=== PATIENT | female | born 1955 | race Caucasian/White ===

== ENCOUNTER 2021-12-21 21:41 | Inpatient (IN) | payer MEDICARE, OTHER ==
[~2021-12-21] VITALS: Ht 162.6 cm; Wt 44.3 kg
[2021-12-21] MEDS ORDERED: Aspir 8181 MG PO (21:58)
[2021-12-21 22:18] LABS: BASOPHILS ABSOLUTE AUTO 0.03 K/mm3 (0.00-0.23); BASOPHILS PERCENT AUTO 0 % (0-2); EOSINOPHILS ABSOLUTE AUTO 0.01 K/mm3 (0.00-0.68); EOSINOPHILS PERCENT AUTO 0 % (0-6); Hematocrit 41.9 % (33.0-51.0); Hemoglobin 12.1 g/dL (11.5-16.0); IMMATURE GRAN ABSOLUTE AUTO 0.24 K/mm3 (0.00-0.10); IMMATURE GRAN PERCENT AUTO 2 % (0-1); LYMPHOCYTES ABSOLUTE AUTO 0.83 K/mm3 (0.84-5.20); LYMPHOCYTES PERCENT AUTO 6 % (21-46); MONOCYTES ABSOLUTE AUTO 0.71 K/mm3 (0.16-1.47); MONOCYTES PERCENT AUTO 5 % (4-13); Mean Corpuscular HGB 27.1 pg (26.0-34.0); Mean Corpuscular HGB Conc 28.9 g/dL (31.5-36.5); Mean Corpuscular Volume 94 fL (80-100); Mean Platelet Volume 9.4 fL (9.1-12.4); NEUTROPHILS PERCENT AUTO 87 % (41-73); Platelet Count 507 K/mm3 (150-400); RDW Standard Deviation 101.6 fL (35.1-46.3); Red Blood Cell Count 4.46 M/mm3 (3.80-5.20); White Blood Cell Count 13.52 K/mm3 (4.00-11.30)
[2021-12-21 22:48] LABS: Alanine Aminotransfer (ALT/SGP 43 U/L (12-78); Albumin/Globulin Ratio 0.4 (0.8-1.8); Anion Gap 15 mmol/L (6-16); Aspartate Aminotrans (AST/SGOT 115 U/L (12-37); Bilirubin, Total 0.6 mg/dL (0.1-1.0); Blood Urea Nitrogen 22 mg/dL (8-24); Bun/Creatinine Ratio 29.4 (12.0-20.0); CO2, Blood 20 mmol/L (21-32); Calcium, Blood 9.9 mg/dL (8.5-10.1); Chloride, Blood 109 mmol/L (98-108); Creatinine, Blood 0.75 mg/dL (0.40-1.00); Globulin, Blood 5.2 g/dL (2.2-4.0); Glomerular Filtration Rate >60 (60-); Glucose, Blood 131 mg/dL (70-99); Potassium, Blood 4.6 mmol/L (3.5-5.5); Sodium, Blood 144 mmol/L (136-145); Total Protein, Blood 7.2 g/dL (6.4-8.2)
[2021-12-21 22:52] LABS: Alk Phos >2330 U/L (50-136)
[2021-12-21 22:55] LABS: Influenza A, PCR NEGATIVE (NEGATIVE); Influenza B, PCR NEGATIVE (NEGATIVE); Resp Syncytial Virus, PCR NEGATIVE (NEGATIVE); SARS-Cov-2 (COVID-19) PCR, MMC NEGATIVE (NEGATIVE)
[2021-12-21 23:10] LABS: Source, Urine Foley catheter
[2021-12-21 23:26] LABS: Bilirubin, Urine Neg (Neg); Blood, Urine 4+ (Neg); Glucose Qualitative, Urine Neg (Neg); Ketones, Urine 1+ (Neg); Leukocyte Esterase, Urine 1+ (Neg); Nitrite, Urine Pos (Neg); Protein, Urine 2+ (Neg); Urobilinogen, Urine NORM (Normal)
[2021-12-21 23:30] LABS: Appearance, Urine Hazy (Clear); Color, Urine Amber (P-Yellow)
[2021-12-21 23:32] LABS: Bacteria Many /hpf; Squamous Epithelial Cells Rare /hpf (Few); White Blood Cells, Urine 25-50 /hpf (0-5)
[2021-12-22 00:28] LABS: Free Thyroxine 0.31 ng/dL (0.70-1.60)
[2021-12-22 00:29] LABS: Triiodothyronine, Free 0.66 pg/mL (2.18-3.98)
[2021-12-22 07:12] LABS: BASOPHILS ABSOLUTE AUTO 0.01 K/mm3 (0.00-0.23); BASOPHILS PERCENT AUTO 0 % (0-2); EOSINOPHILS ABSOLUTE AUTO 0.02 K/mm3 (0.00-0.68); EOSINOPHILS PERCENT AUTO 0 % (0-6); Hemoglobin 9.7 g/dL (11.5-16.0); IMMATURE GRAN ABSOLUTE AUTO 0.27 K/mm3 (0.00-0.10); IMMATURE GRAN PERCENT AUTO 2 % (0-1); LYMPHOCYTES ABSOLUTE AUTO 0.77 K/mm3 (0.84-5.20); LYMPHOCYTES PERCENT AUTO 6 % (21-46); MONOCYTES ABSOLUTE AUTO 0.73 K/mm3 (0.16-1.47); MONOCYTES PERCENT AUTO 6 % (4-13); Mean Corpuscular HGB 27.2 pg (26.0-34.0); Mean Corpuscular HGB Conc 29.4 g/dL (31.5-36.5); Mean Corpuscular Volume 92 fL (80-100); Mean Platelet Volume 9.4 fL (9.1-12.4); NEUTROPHILS ABSOLUTE AUTO 10.66 K/mm3 (1.96-9.15); NEUTROPHILS PERCENT AUTO 85 % (41-73); NRBC ABSOLUTE 0.02 K/mm3 (0.00-0.02); NRBC Auto 0.2 /100 WBC (0.0-0.2); Platelet Count 499 K/mm3 (150-400); RDW Coefficient Variation 29.1 % (11.7-14.2); RDW Standard Deviation 97.4 fL (35.1-46.3); Red Blood Cell Count 3.57 M/mm3 (3.80-5.20); White Blood Cell Count 12.46 K/mm3 (4.00-11.30)
[2021-12-22 07:53] LABS: Alanine Aminotransfer (ALT/SGP 34 U/L (12-78); Albumin, Blood 2.6 g/dL (3.4-5.0); Albumin/Globulin Ratio 0.6 (0.8-1.8); Anion Gap 11 mmol/L (6-16); Aspartate Aminotrans (AST/SGOT 93 U/L (12-37); Bilirubin, Total 0.4 mg/dL (0.1-1.0); Blood Urea Nitrogen 19 mg/dL (8-24); Bun/Creatinine Ratio 26.4 (12.0-20.0); CO2, Blood 22 mmol/L (21-32); Calcium, Blood 8.9 mg/dL (8.5-10.1); Chloride, Blood 110 mmol/L (98-108); Creatinine, Blood 0.72 mg/dL (0.40-1.00); Globulin, Blood 4.3 g/dL (2.2-4.0); Glomerular Filtration Rate >60 (60-); Glucose, Blood 93 mg/dL (70-99); Potassium, Blood 4.1 mmol/L (3.5-5.5); Sodium, Blood 143 mmol/L (136-145); Total Protein, Blood 6.9 g/dL (6.4-8.2)
[2021-12-22 08:26] LABS: Alk Phos >2330 U/L (50-136)
--- NOTE | 2021-12-22 09:50 | NUR ---
CARE ASSUMPTION THIS RN ASSUMED CARE AT 0700 FROM LULY RN. PATIENT IS ALERT AND ORIENTED X3, PATIENT THOUGHT IT WAS SATURDAY NOT SATURDAY. PERRLA. PATIENT IS HARD OF HEARING. PATIENT REPORTS NO CHEST PAIN/PRESSURE, SHORTNESS OF BREATH OR PAIN. VSS. SPO2 >95% ON 5L NC. PATIENT WAS AT 3L NC AND DROPPED TO 77 AND WAS HANGING AROUND 85 SO THIS RN INCREASED IT BACK TO 5L NC AND PATIENT SPO2 IMPROVED AND SUSTAINED IN THE 90S. PATIENT LUNG SOUNDS CLEAR. STRONG RADIAL AND PEDIS PULSES. PATIENT ABD IS SOFT, ACTIVE, AND NONTENDER. PATIENT IS INCONTINENT OF BOWEL AND BLADDER. PATIENT HAS QUINTEROS CATH DRAINING WITH GRAVITY JOSHUA COLORED URINE. PATIENT HAS A STAGE 1 PRESSURE SORE TO BOTTOM AND SKIN BREAKDOWN. SEE CHART FOR PICTURE. MEPILEX PLACED AND WILL REPOSITION PATIENT. PATIENT STATES SHE DOES BETTER WITH A LIQUID DIET AND HAS DIFFICULTY EATING DUE TO STOMACH ISSUES AND BECOMING NAUSEOUS. DIETITCIAN SAW PATIENT THIS MORNING. CALL LIGHT WITHIN REACH AND BED IN LOWEST POSITION. THIS RN PROVIDED THERAPUEETIC COMMUNICATION AND ACTIVE LISTENING. WILL CONTINUE TO MONITOR AND PROVIDE CARE.
[2021-12-22 11:39] LABS: Alpha Feto Protein, Tumor Mkr 2.6 ng/mL (0.0-8.0); Cancer Antigen 125 236.1 U/mL (1.5-35.0)
[2021-12-22 12:06] LABS: Carcinoembryonic Antigen 6545.8 ng/mL (0.0-3.0)
[2021-12-22] MEDS ORDERED: ASPI81CH PO (12:41)
[2021-12-22] MEDS ORDERED: ATORVASTATIN CA80 M1 PO (12:42)
[2021-12-22] MEDS ORDERED: Prinivil10 MG PO (12:43)
[2021-12-22] MEDS ORDERED: METO50ER PO (12:44)
[2021-12-22] MEDS ORDERED: NITR.4SL SL (12:49)
[2021-12-22] MEDS ORDERED: TICA90TA PO (12:50)
--- NOTE | 2021-12-22 13:48 | NUR ---
Spoke with Caremanager Marilou and discussed case. Marilou reports having a conversation with daughter. Pt and daughter live in a Motel in [facility] and daughter drives to [place] to work at [employer]. Pt resting in bed upon arrival. Pt is [place] and request discussion take place with daughter and inturn daughter will relay everything to Pt. Pt briefly listens to conversation but then states she is struggling staying awake. Offered therapeutic listening as daughter reports her and Pt moved up to [place] from [place] having a place to rent but when they arrived landlord had already rented to someone else. Since they have been living in a Motel. Daughter Jennifer reports having 2 dogs and is difficult to find a place to rent due to having pets. Continued therapeutic listening as Jennifer reports Pt has shown significant decline in the last 2 months. Pt requires assistance with ambulating to the bathroom and is only strong enough to walk 10-15 feet. She also reports Pt's appetite is poor taking in only ensure and other liquide. Solid food makes Pt nauseated. Educated on the importance of planning for the future and the importance of having a conversation with Pt regarding her goals, values, and whether she would want to pursue treatment for her cancer. Jennifer reports thinking Pt would not be strong enough and may not tolerate treatment. She reports plan to discuss further with Pt after oncologist visits to discuss wishes. Continued therapeutic listening and answered questions. Discussed hospice as an option pending Pt's wishes regarding treatment. Educated on hospice philosophy. Daughter Jennifer expresses appreciation and reports no other concerns at this time. Provided Palliative Care contact information and instructed to call with any questions or concerns. Spoke with Primary RN Moraima prior to visiting with Pt and discussed case. Palliative Care will remain available.
[2021-12-22] MEDS ORDERED: Aspir 8181 MG PO (16:07)
--- NOTE | 2021-12-22 17:56 | NUR ---
SHIFT SUMMARY THIS RN PROVIDED THERAPEUTIC COMMUNICATION TO BOTH THE DAUGHTER AND PATIENT. THIS RN DISCUSSED WITH THE DAUGHTER AND PATIENT THE BENEFITS OF COMFORT CARE AND HOSPICE. THIS RN HAD A GOOD DISCUSSION WITH THE DAUGTHER THE PRIMARY COMMUNICATOR BACK AND FORTH BETWEEN MYSELF AND THE PATIENT. WE DISCUSSED WHAT COMFORT CARE MEASURE CAN OFFER AND THAT JUANA WITH PALLIATIVE CARE WOULD COME BY AND TALK WITH THEM. SEE ANDREY NOTE. DEVEN FROM [facility] SPENT TIME IN THEIR TALKING LIVING SITUATION WITH THE FAMILY. THE PATIENT AND DAUGHTER AT THIS TIME ARE LIVING IN A HOTEL IN [facility] AND JUST RECENTLY MOVED HERE FROM [place]. THE PATIENT AND DAUGHTER BOTH WANT TO WAIT TO DISCUSS THE PLAN OF CARE WITH THE ONCOLOGIST BEFORE MAKING ANY DECISIONS. THERE HAVE BEEN NO ACUTE CHANGES THIS SHIFT. THE PATIENT IS NOW EXPRIENVING PAIN. PATIENT RECEIVED IV FENTANYL PER EMAR TO HELP RELIEVE PAIN AND IT BROUGHT THE PATIENT PAIN LEVEL FROM 10 TO A 3, BUT THE PATIENT BP BECAME SOFT, SEE VITAL SIGNS. PATIENT EXPRESSED THAT PAIN WAS MOVING TO A 6. THIS RN CALLED MD GRAY AND RECEIVED PO MEDICATION FOR PAIN, TORADOL. PATIENT RECEIVED PAIN MEDICATION PER EMAR. SEE EMAR. PATIENT DESCRIBED PAIN SHARP CONSTANT AND THAT IT WAS " ALL OVER". PATIENT HAS BEEN REPOSITION PATIENT ALLOWED. PATIENT STATED LAYING ON HER SIDES CAUSES HER TO HAVE MORE PAIN, AND CAN NOT TOLERATE IT VERY LONG. THIS RN CALLED THE ANSWERING SERVICE ABOUT THE ONCOLOGIST COMING TO SEE THE PATIENT AND INFORMED THEM THAT WE ARE WAITING FOR THEM TO DISCUSS A PLAN WITH THE ONCOLOGIST. WE RECEIVED A CALL THAT THE ONCOLOGIST WILL BE BY IN AN HOUR, SO APROX 1900. THE DAUGHTER IS UNABLE TO COME BACK IN, BUT BEFORE SHE LEFT ASKED THAT WE COULD CALL HER ON THE PATIENTS CELL PHONE AND PUT HER ON SPEAKER SO SHE CAN BE APART OF THE CONVERSATION. PATIENT HAS ATE VERY LITTLE OF HER MEAL, AND DRANK LUIZ MINIMAL OF HER CHOCOLATE SHAKES. PATIENT HAS HAD 4 SMALL LOOSE INCONTINENT EPISODES OF BOWEL MOVEMENT THIS SHIFT. FREQUENT CHECK TO ENSURE PATIENT ISN'T SITTING IN BM, PATIENT STATED SHE CAN'T REALLY TELL WHEN SHE GOES. QUINTEROS CATH IN PLACE DRAINING WITH GRAVITY, AMDER COLORED URINE WITH A FOUL SMELL. BED IN LOWEST POSITION AND CALL LIGHT WITHIN REACH. WILL CONTINUE TO MONITOR AND PROVIDE CARE UNTIL HAND OFF WITH NEXT SHIFT.
--- NOTE | 2021-12-22 19:00 | NUR ---
ASSUMPTION OF CARE REPORT RECIEVED FROM DAY SHIFT RN. PATIENT RESTING IN BED WITH EYES CLOSED. EYES OPEN UPON ENTERING ROOM. SOFT BPs. ONCOLOGIST AND HOSPITALIST AWARE OF SOFT BPs. COMPLAINTS OF PAIN FROM PATIENT, OTHERWISE DENIES NEEDS AT THIS TIME. ABLE TO MAKE NEEDS KNOWN TO STAFF, CALL LIGHT IN REACH. SEE PREVIOUS RNs NOTE.
--- NOTE | 2021-12-22 19:38 | NUR ---
ONCOLOGIST VIST/CODE STATUS CHANGE/COMFORT CARE MD FISCHER CAME TO VISIT PATIENT AND DISCUSSED PROGNOSIS WITH THE PATIENT. PATIENT UNDERSTOOD HER PROGNOSIS. MD MCCORD CALLED THE PATIENT DAUGHTER AND DISCUSSED THE PATIENTS PROGNOSIS AND WHAT WOULD BE THE NEXT STEPS MOVING FORWARD. THE DAUGHTER AND PATIENT AGRRRED TO THE PLAN. THE PATIENT WAS CHANGED TO COMFORT CARE, AND CODE STATUS CHANGED TO DNR. THIS RN CALLED MD NICKERSON AND INFORMED HIM OF THE CODE STATUS CHANGE.
--- NOTE | 2021-12-23 05:55 | NUR ---
SHIFT SUMMARY PATIENT REMAINS ON COMFORT CARE. ALERT AND ORIENTED BUT [place]. BASELINE VITALS OBTAINED AT START OF SHIFT PRIOR TO CC ORDERS. NO CHANGES TO OXYGEN REQUIREMENTS, 2L IN PLACE FOR COMFORT. QUINTEROS PATENT AND DRAINING DARK YELLOW URINE TO GRAVITY. INCONTINENT OF BOWEL, ATTENDS IN PLACE. MEDICATED PER EMAR FOR PAIN. PATIENT MENTIONED THAT THE CC PAIN MEDICATION IS WORKING BETTER THAN WHAT SHE WAS RECIEVING ON DAY SHIFT AND IS GETTING GOOD PAIN RELIEF. PATIENT REPOSITIONED OFTEN ALLOWED FOR COMFORT AND PREVENTION OF SKIN BREAKDOWN. PATIENT SLEPT FOR MAJORITY OF SHIFT BUT WAKES EASILY. ABLE TO MAKE NEEDS KNOWN TO STAFF. BED IN LOW POSITION, CALL LIGHT IN REACH. WILL REPORT TO DAY SHIFT RN.
--- NOTE | 2021-12-23 06:40 | NUR ---
TRANSFER TO [facility] REPORT GIVEN TO PATIENT'S CHOICE [facility] FLOOR RN. PATIENT TRANSFERED TO [facility] VIA PCU BED ACCOMPANIED BY ALL BELONGINGS AND CHART.
--- NOTE | 2021-12-23 17:54 | NUR ---
CALLED DR GRAY RE BP. NEW ORDERS FOR 500 BOLUS ALSO CHANGING ROXANOL TO 5-20 MG ADDED O2 R/T PROTOCOL
--- NOTE | 2021-12-23 19:11 | NUR ---
PT DENIS HAN TODAY. DID CHANGE HER PO MELANY TO 5-20. THIS BRINGS PAIN DOWN ADN SHE SLEEPS FOR 1 HOUR PLUS. DAUGHTER IN ROOM TODAY. STATES THIS WORKING WELL. 2 @ 500 BOL[address]ES GIVEN TODAY PER DR GRAY . MIDODRINE CONTINUES. BED IN LOW POSITION, CALL LITE IN REACH, CALLS APPROP
--- NOTE | 2021-12-24 05:26 | NUR ---
PM SHIFT SUMMARY PATIENT FELT LIKE SHE WAS GOING TO BE NAUSEOUS EARLY IN THE SHIFT, AND WAS GIVEN ZOFRAN WITH GREAT RESULTS. SHE DID NOT HAVE ANY COMPLAINTS OF PAIN UNTIL AROUND 0300. ROXANOL 5MG WAS GIVEN WITH GREAT RESULTS. SINCE RECEIVING MEDICATION, PATIENT HAS BEEN RESTING COMFORTABLY. THERE WERE A FEW TIMES DURING THE SHIFT WHERE SHE GOT VERY ANXIOUS AND WOULD CALL OUT SAYING SHE COULD NOT BREATHE. UPON ENTERING ROOM ALL OF THESE TIMES, HER NASAL CANNULA HAD COME OUT. I HELPED HER WITH BREATHING, REPLACED THE CANNULA, AND SHE WAS FINE IN A FEW MINUTES. SHE ALSO KEPT SAYING SHE NEEDED TO BE "PULLED HIGHER IN THE BED", BUT SHE WAS ALREADY UP HIGH SHE COULD GO. I EXPLAINED THIS TO PATIENT A FEW TIMES, AND SHE FINALLY UNDERSTOOD. PATIENT HAD NO OTHER REQUESTS / NEEDS DURING THE SHIFT.
--- NOTE | 2021-12-24 09:00 | NUR ---
PT PLEASNT COOP A/O X1-2 TALKING, EATING LIGHTLY. PAIN MANAGED WITH AVAIL MEDS. O2 TURNED UP TO 5L TODAY. ON COMFORT CARE. RESP ABOUT 12, BED IN LOW POSITION, C ALL LITE IN REACH, BED ALARM ON FOR SAFETY
--- NOTE | 2021-12-24 14:09 | NUR ---
1310 PT CONTINUES TO ESCALATE. TRIED THE ROXANOL. HELPED LITTLE. DR GRAY IN REQUESTED WE GIVE THE 0.5 MG ATIVAN IV. UPDATED & CLARIFIED ORDER WITH 1320 GAVE. SHE NOW RESTING. RESP 10/MIN. MOUTH OPEN, O2 N/C PLACED IN MOUTH.
--- NOTE | 2021-12-24 14:47 | NUR ---
PT RESP 8/MIN. H/R 80/MIN. REG. RESTING EYES CLOSED. BARELY ARROUSABLE.
--- NOTE | 2021-12-24 16:45 | NUR ---
1230. PT BECOMING ANX. PULLED O2 OFF. STATES HAVING HARD TIIME BREATHING REPLACED O2. STATES SOME PAIN. GAVE MELANY FOR PAIN AND TO RELAX BREATHING. 1300 PT SLOWED SOME, CONTINUES TO TRY TO GET OUT OF BED, NOT REDIRECTABLE. IS MORE ANX. DR GRAY IN. GIVING ATIVAN PER 1330 PT MUCH CALMER. SEE OTHER NOTES.
--- NOTE | 2021-12-24 17:29 | NUR ---
PT IS PRESENTLY BARELY RESPONDANT TO MED STERNAL RUB. HAS BEEN HIGHLY ANX AND STRUGGLING THIS AFT. DID MEDIACATE. TOOK SOME TIME TO RELAX. DAUGHTER HAS BEEN IN TODAY TO BE WITH PT MUCH OF DAY. JUST LEFT. DOES WANT TO BE CALLED IF MAJOR CHANGES. NUMBER ON PT BOARD. BED IN LOW POSITION, CALL LITE IN REACH, BED ALARM ON FOR SAFETY. RESP AT 8/MIN, H/R 80. O2 AT 5L.
--- NOTE | 2021-12-24 18:11 | NUR ---
PT CONTINUES TO REST. PRESENTS H/R REG, RATE AT 80. RESP 7. CONTINUES TO BE ON 5L O2. NOT RESPONDING TO STERNAL RUB EXCEPT WITH LIGHT GR[place]MACE. CALLED DAUGHTER TO UPDATE.
--- NOTE | 2021-12-25 06:30 | NUR ---
PM SHIFT SUMMARY PATIENT'S RESP RATE HAS BEEN A 7 OR 8 ALL SHIFT. THIS IS CONSISTENT WITH WHAT DAY SHIFT NOTED. COMPARED TO YESTERDAY, IT IS MORE DIFFICULT TO AROUSE HER. SHE WAS ABLE TO TAKE HER SYNTHROID THIS MORNING, BUT IT WAS A BIT OF A CHALLENGE KEEPING HER AWAKE FOR THE ADMINISTRATION. SHE IS STILL ON 5L O2 VIA NC. HER BLOOD CULTURES SHOW NO GROWTH AT DAY 3. WHEN I ASKED HER THROUGHOUT THE SHIFT IF THERE WAS ANYTHING SHE NEEDED, OR IF SHE WAS IN PAIN, SHE EITHER SHOOK HER HEAD NO OR JUST FELL RIGHT BACK ASLEEP. NOW, AT THE END OF SHIFT, SHE IS NOT ABLE TO PUT ANY WORDS TOGETHER TO ANSWER MY QUESTIONS.
--- NOTE | 2021-12-25 08:33 | NUR ---
PT APPEARS TO RESTING COMFORTABLY AT THIIS TIME.
--- NOTE | 2021-12-25 10:27 | NUR ---
PT REPOSITIONED AND PULLED UP IN BED. BRIEF CHECKED- CLEAN AND DRY. PT APPEARS COMFORTABLE AND FREE OF PAIN AT THIS TIME.
--- NOTE | 2021-12-25 12:38 | NUR ---
PT DEMONSTRATED S/S OF AIR HUNGER. MEDICATED W/ 5MG OF ROXANOL. DAUGHTER IN ROOM. PT APPEARS TO BE BREATHING EASIER AND RESTING IN BED.
--- NOTE | 2021-12-25 15:33 | NUR ---
PT REPOSTIONED, DAUGHTER IS AT THE BEDSIDE. PT WAS GIVEN ROXINOL 5 MG FOR AIR HUNGER. PT APPEARES TO BE COMFORTABLE
--- NOTE | 2021-12-25 16:30 | NUR ---
PT APPEARS TO BE COMFORTABLE AT THIS TIME RESPIRATIONS 10/MIN. WILL CONTINUE TO MONITOR FOR CHANGES
--- NOTE | 2021-12-25 17:36 | NUR ---
SHIFT SUMMARY PT HAS BEEN SOMNOLENT AND UNRESPONSIVE THROUGHOUT SHIFT. PT WILL SOMETIMES OPEN EYES WHEN CARE IS BEING PROVIDED. MEDICATED FOR AIR HUNGER TWICE BY PRIMARY RN LEIGH. DAUGHTER IN ROOM MOST OF THE DAY. REPOSITIONED OFTEN FOR COMFORT. QUINTEROS IN PLACE WITH SCANT OUTPUT.
--- NOTE | 2021-12-25 17:56 | NUR ---
STUDENT DOCUMENTATION THIS RN WAS WITH THE STUDENT RN FOR ASSESSMENTS AND AGREE WITH THE STUDENTS ASSESSMENT AND DOCUMENTATION
--- NOTE | 2021-12-25 18:07 | NUR ---
theraputic visit with daughter. will continue to moitor pt and assist daughterr.
--- NOTE | 2021-12-25 18:45 | NUR ---
PT SHOWING S/S OF AIR HUNGER. PRIMARY RN LEIGH MEDICATED WITH 5 MG ROXANOL. PT REPOSITIONED AT THIS TIME.
--- NOTE | 2021-12-26 04:59 | NUR ---
SHIFT SUMMARY COMFORT CARE. PT DID NOT SHOW ANY SINGS OF AIR HUNGER THIS SHIFT AND LITERALLY SLEPT FOR THE ENTIRE SHIFT. SHE WAS NOT AROUSEABLE WHEN BEING CHANGED OR TURNED. QUINTEROS IN PLACE W/ 100 ML OUTPUT THIS SHIFT. NO BM. PT DOES NOT APPEAR TO BE IN ANY DISTRESS AND IS RESTING COMFORTABLY.
--- NOTE | 2021-12-26 07:33 | NUR ---
PT TAKING SHORT SHALLOW GASPS 18 BREATHS PER MINUTE, GAVE ROXINOL 5 MG FOR AIR HUNGER
--- NOTE | 2021-12-26 09:39 | NUR ---
MEDICATED FOR AIR HUNGER PT APPEARS TO BE COMFORTABLE
--- NOTE | 2021-12-26 09:57 | NUR ---
PT PASSED AT 0945, DAIRY TECHNOLOGIST NOTIFIED AND VERIFIED . DR GRAY WAS NOTIFIED AND STATED THAT SHE WOULD NOTIFY THE FAMILY
== END 2021-12-26 09:45 | DRG 871 ==
LOC: ER 21:41 → PCU 12-22 01:37 → ER 12-22 01:37 → PCU 12-22 03:38 → MEDS 12-23 06:48 → PCU 12-23 06:48 → MEDS 12-23 06:49
PROVIDERS: Emergency Medicine; Internal Medicine; ADMIT Internal Medicine
DX: A41.51 Sepsis due to Escherichia coli [E. coli] (principal); E43 Unspecified severe protein-calorie malnutrition; J96.01 Acute respiratory failure with hypoxia; Z68.1 Body mass index [BMI] 19.9 or less, adult; R64 Cachexia; C78.7 Secondary malignant neoplasm of liver and intrahepatic bile duct; C78.00 Secondary malignant neoplasm of unspecified lung; C19 Malignant neoplasm of rectosigmoid junction; N39.0 Urinary tract infection, site not specified; C79.51 Secondary malignant neoplasm of bone; Z20.822 Contact with and (suspected) exposure to COVID-19; Z28.21 Immunization not carried out because of patient refusal; Z51.5 Encounter for palliative care; E03.9 Hypothyroidism, unspecified; R15.9 Full incontinence of feces; I95.9 Hypotension, unspecified; Z53.20 Procedure and treatment not carried out because of patient's decision for unspecified reasons; E86.0 Dehydration; H91.90 Unspecified hearing loss, unspecified ear; D63.0 Anemia in neoplastic disease; Z79.82 Long term (current) use of aspirin
CPT/HCPCS: 0241U; 36415; 51702; 51798; 71045; 71260; 74177; 80053; 80400; 81001; 82105; 82378; 82533; 83605; 83690; 83880; 84145; 84439; 84443; 84481; 84484; 85025; 86304; 87040; 87077; 87086; 87186; 93005; 93010; 96374; 96375; 99285-25; A9270; J0456; J0696; J0834; J1170; J1650; J2060; J2270; J2405; J3010; J7030; J7040; J7050; P9046; Q9967